=== PATIENT | female | born 1970 | race Caucasian/White ===

== ENCOUNTER → 2017-04-18 | Outpatient (CLI) | payer BC | LOC: MC.RAD 11:20 | DX: Z12.31 Encounter for screening mammogram for malignant neoplasm of breast (principal) ==

== ENCOUNTER → 2018-04-14 | Outpatient (CLI) | payer OTHER | LOC: COL.RAD 13:00 | DX: M18.12 Unilateral primary osteoarthritis of first carpometacarpal joint, left hand (principal) | CPT/HCPCS: J3301; Q9967 ==

== ENCOUNTER → 2018-06-04 | Outpatient (CLI) | payer OTHER | LOC: MC.RAD 11:00 | DX: Z12.31 Encounter for screening mammogram for malignant neoplasm of breast (principal) ==

== ENCOUNTER → 2019-07-30 | Outpatient (CLI) | payer BC | LOC: MC.RAD 09:45 | DX: Z12.31 Encounter for screening mammogram for malignant neoplasm of breast (principal) ==

== ENCOUNTER → 2019-09-27 | Outpatient (CLI) | payer BC | LOC: COL.RAD 09-22 09:30 | DX: M79.642 Pain in left hand (principal) | CPT/HCPCS: J3301; Q9967 ==

== ENCOUNTER → 2020-08-03 | Outpatient (CLI) | payer BC | LOC: MC.RAD 10:10 | DX: Z12.31 Encounter for screening mammogram for malignant neoplasm of breast (principal); Z98.890 Other specified postprocedural states ==

== ENCOUNTER → 2021-08-22 | Outpatient (CLI) | payer BC | LOC: MC.RAD 10:46 | DX: Z12.31 Encounter for screening mammogram for malignant neoplasm of breast (principal) ==

== ENCOUNTER → 2022-12-10 | Outpatient (CLI) | payer BC | LOC: MC.RAD 10-04 11:30 | DX: Z12.31 Encounter for screening mammogram for malignant neoplasm of breast (principal) ==